=== PATIENT | male | born 1955 | race Caucasian/White ===

== ENCOUNTER 2016-09-05 10:00 | Emergency (ER) | payer OTHER ==
[~2016-09-05] VITALS: Ht 172.7 cm; Wt 81.6 kg
--- NOTE | 2016-09-05 10:19 | ED GI/GU/ABDOMINAL COMPLAINT ---
History of Present Illness General Chief Complaint: Nausea, Vomiting, Diarrhea Stated Complaint: DIARRHEA Source: patient Exam Limitations: no limitations Vital Signs & Intake/Output Vital Signs & Intake/Output Vital Signs Date Time Temp Pulse Resp B/P Pulse O2 O2 Flow FiO2 Ox Delivery Rate 09/05 1110 98.0 70 146/77 ED Intake and Output 09/06 0000 09/05 1200 Intake Total 1000 Output Total Balance 1000 Intake, IV 1000 Patient 180 lb Weight Allergies Coded Allergies: Penicillins (Severe, RASH 09/05/16) Uncoded Allergies: TREES (04/04/11) Reconcile Medications Amlodipine Besylate 10 MG TABLET 1 TAB PO DAILY HEART (Reported) Cholecalciferol (Vitamin D3) 1,000 UNIT TABLET 1 TAB PO DAILY SUPPLEMENT ( Reported) Citalopram Hydrobromide (Citalopram HBr) 20 MG TABLET 1 TAB PO DAILY MENTAL HEALTH (Reported) Dicyclomine Hydrochloride (Bentyl) 10 MG CAPSULE 1 CAP PO TID PRN SPASM Diphenoxylate HCl/Atropine (Lomotil 2.5-0.025 MG Tablet) 2.5 MG-0.025 MG TABLET 1 TAB PO 4 TIMES/DAY PRN DIARRHEA Etodolac 400 MG TABLET 1 TAB PO BID UNKNOWN (Reported) Losartan Potassium 100 MG TABLET 1 TAB PO DAILY HEART (Reported) Tramadol HCl 50 MG TABLET 1 TAB PO BIDP PRN PAIN (Reported) Triage Note: 61 Y/O MALE C/O N/V/D AND DIFFUSE ABDOMINAL PAIN X APPROX 1 WEEK. STATES HE WAS SICK LAST WEEK WITH SAME AND THEN BEGAN TO FEEL A LITTLE BETTER UNTIL FEW DAYS AGO WHEN SYMPTOMS RETURNED. REPORTS LOSING WEIGHT DUE TO LACK OF APPETITE/PO INTAKE. C/O WEAKNESS. AFEBRILE. Triage Nurses Notes Reviewed? yes Duration: week(s): (1), worse persistent since (YESTERDAY) Timing: multiple episodes today Location: left lower quadrant, right lower quadrant Radiation: no radiation No Modifying Factors: none Associated Symptoms: abdominal pain (LOWER ABDOMINAL CRAMPING), diarrhea HPI: This is a 61 year old male presents to the ER for multiple episodes of diarrhea since yesterday. Patient admits to some lower abdominal cramping. Positive nausea and chills but no vomiting. He has a history of similar symptoms last week and that eventually resolved. All week he didn't feel well. Yesterday he ate [employer] dinner prior to that he felt constipated. Since that time he said multiple episodes of loose watery stool. No blood in the stool. He has status post knee replacement surgery in June which went routinely. He has history of hypertension on medications. Last colonoscopy was 7 years ago from which they removed some polyps. Patient admits to 40 pound weight loss since February most happening after the surgery. He states although he was trying to lose weight for the knee he feels like the remainder of the weight loss is, and unexpectedly. Positive malaise. As any recent travel or antibiotics. He was given Rapaflo medications by urologist also recently. Past History Travel History Traveled to [place] past 21 day No Medical History Any Pertinent Medical History? see below for history Neurological: NONE EENT: NONE Cardiovascular: NONE Respiratory: NONE Gastrointestinal: NONE Hepatic: NONE Renal: NONE Musculoskeletal: NONE Psychiatric: NONE Endocrine: NONE Blood Disorders: NONE Cancer(s): NONE TEAM DRIVER/Reproductive: NONE Surgical History Surgical History: knee replacement, COLONOSCOPY 7 YEARS AGO Psychosocial History What is your primary language Croatian Tobacco Use: Never used ETOH Use: denies use Illicit Drug Use: denies illicit drug use Family History Comment: FATHER - ORAL CANCER, CHF MOTHER - ETOH DEPENDENCE Hx Contributory? No Review of Systems Review of Systems Constitutional: Reports: unexplained weight loss (40 LBS SINCE FEBRUARY). EENTM: Reports: no symptoms. Respiratory: Denies: cough, short of breath. Cardiovascular: Denies: chest pain, palpitations. GI: Reports: abdominal pain, diarrhea. Genitourinary: Denies: discharge, dysuria, frequency, hematuria. Musculoskeletal: Reports: no symptoms. Skin: Reports: no symptoms. Neurological/Psychological: Reports: no symptoms. Hematologic/Endocrine: Denies: bruising, bleeding, polyuria, polydipsia. Immunologic/Allergic: Denies: splenectomy. All Other Systems: Reviewed and Negative Physical Exam Physical Exam General Appearance: well developed/nourished, alert, awake Head: atraumatic, normal appearance Eyes: Bilateral: normal appearance, PERRL, normal inspection. Ears, Nose, Throat, Mouth: hearing grossly normal, moist mucous membrane Neck: normal inspection, supple, full range of motion Respiratory: normal breath sounds, chest non-tender, quiet respiration Cardiovascular: regular rate/rhythm Peripheral Pulses: 2+ radial (R), 2+ radial (L) Gastrointestinal: normal bowel sounds, soft, non-tender, NO REBOUND OR GUARDING Back: normal inspection, normal range of motion Extremities: normal range of motion Neurologic/Psych: no motor/sensory deficits, awake, alert, oriented x 3 Core Measures ACS in differential dx? No Severe Sepsis Present: No Septic Shock Present: No Progress Differential Diagnosis: colitis, dehydration, acute kidney injury, C. difficile, secretory diarrhea mesenteric ischemia, Plan of Care: Orders Procedure Date/time Status OVA AND PARASITE ANTIGENS 09/05 1220 Complete Laboratory Tests 09/05/16 1325: Lactic Acid Cancelled 09/05/16 1045: Urine Color YEL, Urine Clarity CLEAR, Urine pH 7.0, Ur Specific [place] 1.015, Urine Protein NEG, Urine Ketones 40 H, Urine Nitrite NEG, Urine Bilirubin NEG@ ICTO, Urine Urobilinogen 0.2, Ur Leukocyte Esterase NEG, Ur Microscopic EXAM NOT REQUIRED, Urine Hemoglobin NEG, Urine Glucose NEG Microbiology 09/05 1220 STOOL: Cryptosporidium Antigen - COMP 09/05 1220 STOOL: Giardia Antigen (DORI) - COMP 09/05 1200 STOOL: Cryptosporidium Antigen - CAN Cancelled: QNS 09/05 1200 STOOL: Giardia Antigen (DORI) - CAN Cancelled: QNS 09/05 1200 STOOL: Clostridium difficile Toxin A & B - RES 09/05 1200 STOOL: Stool Culture - RES LABS WITHIN NORMAL LIMITS. STOOL CULTURES SENT. (PRATIK OBRIEN,KENY) Initial ED EKG: none Departure Departure Time of Disposition: 1157 Disposition: HOME OR SELF CARE Condition: Stable Clinical Impression Primary Impression: Diarrhea Referrals: CATARINO OBRIEN,LON Chavis (PCP/Family) Additional Instructions: Please take the Lomotil as directed. Follow up with the GI specialist that did your previous colonoscopy. You will get a call back from Jeffrey for any positive culture results. Departure Forms: Customer Survey General Discharge Information Prescriptions: Current Visit Scripts Diphenoxylate HCl/Atropine (Lomotil 2.5-0.025 MG Tablet) 1 TAB PO 4 TIMES/DAY PRN DIARRHEA #20 TAB Dicyclomine Hydrochloride (Bentyl) 1 CAP PO TID PRN SPASM #20 CAP
[2016-09-05] MEDS ORDERED: CITALOPRAM HBR20 MG PO (10:20)
[2016-09-05] MEDS ORDERED: AMLODIPINE BESY10 M1 PO (10:20)
[2016-09-05] MEDS ORDERED: LOSARTAN POTAS100 M1 PO (10:20)
[2016-09-05] MEDS ORDERED: TRAMADOL HCL50 M1 PO (10:20)
[2016-09-05] MEDS ORDERED: ETODOLAC400 M1 PO (10:20)
[2016-09-05] MEDS ORDERED: VITAMIN D31000 UNI2 PO (10:21)
[2016-09-05 10:59] LABS: ABSOLUTE BASOPHIL COUNT 0 /CUMM (0.0-0.2); ABSOLUTE EOSINOPHIL COUNT 0 /CUMM (0.0-0.7); ABSOLUTE GRANULOCYTE CT 5.9 /CUMM (1.4-6.5); ABSOLUTE LYMPH COUNT 1.2 /CUMM (1.2-3.4); ABSOLUTE MONOCYTE COUNT 0.6 /CUMM (0.10-0.60); BASOPHIL % 0.3 % (0.0-2.0); EOSINOPHIL % 0.2 % (0-5); GRANULOCYTE % 76.7 % (42.2-75.2); HEMATOCRIT 40.5 % (42-52); MEAN CORPUSCULAR HGB 29.8 PG (27.0-31.0); MEAN CORPUSCULAR HGB CONC 34.8 G/DL (33.0-37.0); MEAN CORPUSCULAR VOLUME 85.7 FL (80.0-94.0); MEAN PLATELET VOLUME 7.3 FL (7.4-10.4); PLATELET COUNT 229 /CUMM (130-400); RBC DISTRIBUTION WIDTH 12.8 % (11.5-14.5); RED BLOOD CELL CT 4.73 /CUMM (4.70-6.10); WHITE BLOOD CELL COUNT 7.7 /CUMM (4.8-10.8)
[2016-09-05 11:10] VITALS: BP 146/77
[2016-09-05] MEDS ORDERED: LOMOTIL 2.5-0.1 EACH PO (12:02)
[2016-09-05] MEDS ORDERED: BENTYL10 M1 PO (12:09)
== END 2016-09-05 12:27 ==
LOC: ERH 10:00
PROVIDERS: Emergency Medicine
DX: R19.7 Diarrhea, unspecified (principal); R10.30 Lower abdominal pain, unspecified
CPT/HCPCS: 81003; 87045; 87328; 87329; 96360